=== PATIENT | female | born 1980 | race Caucasian/White ===

== ENCOUNTER 2017-02-27 10:52 | Emergency (ER) | payer OTHER ==
[~2017-02-27] VITALS: Ht 162.6 cm; Wt 73.8 kg
[~2017-02-27 10:52] MED LIST: ALBU17IN INH; CYTO5TAB8 PO; DAYQUIL PO; LEVO200T4 PO; MUCI600T37 PO; NICO14DI20 TD; PEG1POW PO; PRED10PA PO; SING10TA32 PO; SYNT150T PO
[2017-02-27] MEDS ORDERED: SYNT175T2 PO (11:17)
[2017-02-27] MEDS ORDERED: PRAZ5CAP PO (11:20)
[2017-02-27] MEDS ORDERED: WELLTAB38 PO (11:20)
[2017-02-27] MEDS ORDERED: CELE100C PO (11:20)
[2017-02-27] MEDS ORDERED: CYCL10TA PO (11:20)
[2017-02-27 12:00] LABS: BASO # 0.1 K/mm3 (0.0-0.2); BASO % 0.4 % (0.0-1.0); EOS # 0.4 K/mm3 (0.0-0.50); EOS % 2.1 % (0.0-3.0); LARGE UNSTAINED CELL # 0.2 K/mm3 (0.0-0.4); LYMPH # 3.8 K/mm3 (1.5-4.5); MEAN CORPUSCULAR HGB CONC 34.5 g/dl (32.0-36.5); MEAN CORPUSCULAR VOLUME 89.8 fl (80.0-96.0); MONO # 0.9 K/mm3 (0.0-0.8); NEUTROPHILS # 12.1 K/mm3 (1.8-7.7); NEUTROPHILS % 70.6 % (36.0-66.0); PLATELET COUNT, AUTOMATED 405 k/mm3 (150-450); RED CELL DISTRIBUTION WIDTH 13.2 % (11.5-14.5); WHITE BLOOD COUNT 17.2 K/mm3 (4.0-10.0)
[2017-02-27 12:04] LABS: INR 0.92
[2017-02-27 12:12] LABS: CONTROL LINE HCG INT CTR LINE PRESENT
[2017-02-27 12:21] LABS: ALBUMIN 3.3 GM/DL (3.2-5.2); ALBUMIN/GLOBULIN RATIO 0.83 (1.00-1.93); ALKALINE PHOSPHATASE 72 U/L (45-117); ALT/SGPT 20 U/L (12-78); ANION GAP 7 MEQ/L (8-16); AST/SGOT 10 U/L (15-37); BILIRUBIN,DIRECT < 0.1 MG/DL (0.0-0.2); BILIRUBIN,TOTAL 0.2 MG/DL (0.2-1.0); BLOOD UREA NITROGEN 21 MG/DL (7-18); CALCIUM LEVEL 9.4 MG/DL (8.5-10.1); CARBON DIOXIDE LEVEL 26 MEQ/L (21-32); CHLORIDE LEVEL 106 MEQ/L (98-107); CREATININE FOR GFR 0.68 MG/DL (0.55-1.02); GLOMERULAR FILTRATION RATE > 60.0 (>60); GLUCOSE, FASTING 111 MG/DL (70-105); POTASSIUM SERUM 4.6 MEQ/L (3.5-5.1); SODIUM LEVEL 139 MEQ/L (136-145); TOTAL PROTEIN 7.3 GM/DL (6.4-8.2)
[2017-02-27] MEDS ORDERED: GASTROGRAFIN SOLUTION 30ML (Q9963) As Ordered ONE (13:06)
[2017-02-27] MEDS ORDERED: GASTROGRAFIN SOLUTION 30ML (Q9963) PO ONE ×2 (13:15→13:45)
[2017-02-27] MEDS ORDERED: NS 1,000 ML IV ONE (13:30)
[2017-02-27] MEDS ORDERED: ONDANSETRON 4MG/2ML VIAL (J2405) IV ONE (13:30)
[2017-02-27] MEDS ORDERED: MORPHINE 4 MG/ML 1ML SYRINGE IV ONE (13:30)
[2017-02-27] MEDS ORDERED: ISOVUE-370 76% 100ML VIAL (Q9967) As Ordered ONE (14:31)
--- NOTE | 2017-02-27 15:19 | REP ---
CT ABDOMEN AND PELVIS WITH IV CONTRAST: 02/27/2017. Clinical history: Right lower quadrant pain. Elevated white blood count. Technique: Bolus of 100 ml of Isovue 370 given, scanning through the abdomen and pelvis. Oral Gastrografin mixture, 10 ml in 290 ml of flavored water for two doses per our bowel contrast protocol. Coronal and sagittal reconstructions provided. No prior study. Findings:CT abdomen: Lung bases are clear. Heart is not enlarged. There is no pericardial thickening or effusion. The liver, spleen, gallbladder, pancreas, stomach, adrenal glands and kidneys are unremarkable. The aorta is without aneurysm or dissection. There is no periaortic or other retroperitoneal pathologic sized lymphadenopathy. Small bowel loops are contrast filled but not dilated. Abdominal portion of the colon shows no sign of colitis, diverticulitis, stricture or mass. Appendix is seen and normal. Lung window review of all CT slices of the abdomen and pelvis shows no perforation or free air. Bone windows shows lumbar and lower thoracic spine with posterior elements and visualized ribs all intact. CT pelvis: There is sacralization transverse processes noted of L5 and the sacrum, pelvis, hips, SI joints, symphysis pubis without acute finding. A few bone islands noted. Distal left colon and sigmoid are without evidence of any definite acute inflammatory process. Uterus anteverted, not enlarged. Bladder only partially filled but without wall thickening or mass. There is no definite adnexal mass or pelvic free fluid. The right ovary does have an 18 mm follicle within it (cyst defined at 0.5 cm.). No pelvic free fluid. No ventral or inguinal hernia nor pathologic sized inguinal adenopathy. Small bowel loops in the deep pelvis were grossly intact. Impression: 1. Appendix is seen and normal. There is no inflammatory change about the appendix or cecum. No sign of colitis, diverticulitis, stricture or mass. 2. 1.8 cm dominant follicle in the right ovary without inflammatory changes nearby. Uterus anteverted, not enlarged. 3. No hydronephrosis, hydroureter, renal, ureteral or bladder stones. No bladder wall thickening or mass. Negative exam for acute finding. Signed by Minh Murphy MD 02/27/2017 07:13 P
[2017-02-27 15:27] VITALS: BP 124/93
== END 2017-02-27 15:30 | disposition home or self-care (01) ==
LOC: M ED 10:52
DX: R53.1 Weakness (principal); D72.829 Elevated white blood cell count, unspecified; F44.9 Dissociative and conversion disorder, unspecified; J45.909 Unspecified asthma, uncomplicated; E03.9 Hypothyroidism, unspecified; M19.90 Unspecified osteoarthritis, unspecified site; M54.9 Dorsalgia, unspecified; Z87.891 Personal history of nicotine dependence; Z79.899 Other long term (current) drug therapy
CPT/HCPCS: 36415; 74177; 80048; 80076; 81001; 83605; 84703; 85025; 85610; 85730; 86850; 86900; 86901; 87040; 96374; 96375; 99284; J2405; Q9963; Q9967

== ENCOUNTER 2017-02-28 09:22 | Emergency (ER) | payer OTHER ==
[~2017-02-28] VITALS: Ht 162.6 cm; Wt 74.7 kg
[~2017-02-28 09:22] MED LIST changes: +CELE100C PO; +CYCL10TA PO; +PRAZ5CAP PO; +SYNT175T2 PO; +WELLTAB38 PO
[2017-02-28 09:23] VITALS: BP 133/96
[2017-02-28 10:10] LABS: BASO # 0.1 K/mm3 (0.0-0.2); BASO % 0.5 % (0.0-1.0); EOS # 0.3 K/mm3 (0.0-0.50); EOS % 2.1 % (0.0-3.0); LARGE UNSTAINED CELL # 0.1 K/mm3 (0.0-0.4); LYMPH % 22.9 % (24.0-44.0); MEAN CORPUSCULAR HGB CONC 33.2 g/dl (32.0-36.5); MEAN CORPUSCULAR VOLUME 90.4 fl (80.0-96.0); MONO # 0.6 K/mm3 (0.0-0.8); MONO % 4.8 % (0.0-5.0); NEUTROPHILS # 8.5 K/mm3 (1.8-7.7); NEUTROPHILS % 68.6 % (36.0-66.0); PLATELET COUNT, AUTOMATED 394 k/mm3 (150-450); RED CELL DISTRIBUTION WIDTH 13.2 % (11.5-14.5); WHITE BLOOD COUNT 12.4 K/mm3 (4.0-10.0)
[2017-02-28 10:26] LABS: ANION GAP 8 MEQ/L (8-16); BLOOD UREA NITROGEN 14 MG/DL (7-18); CALCIUM LEVEL 8.7 MG/DL (8.5-10.1); CARBON DIOXIDE LEVEL 24 MEQ/L (21-32); CHLORIDE LEVEL 106 MEQ/L (98-107); CREATININE FOR GFR 0.51 MG/DL (0.55-1.02); GLOMERULAR FILTRATION RATE > 60.0 (>60); GLUCOSE, FASTING 95 MG/DL (70-105); POTASSIUM SERUM 4.6 MEQ/L (3.5-5.1); SODIUM LEVEL 138 MEQ/L (136-145)
== END 2017-02-28 11:38 | disposition home or self-care (01) ==
LOC: M ED 09:22
DX: D72.829 Elevated white blood cell count, unspecified (principal); J02.9 Acute pharyngitis, unspecified